=== PATIENT | male | born 1980 | race Two or more races ===

== ENCOUNTER 2019-12-24 10:32 | Emergency (ER) | payer SELFPAY ==
[~2019-12-24] VITALS: Ht 172.7 cm; Wt 86.2 kg
[~2019-12-24 10:32] MED LIST: NKM; TOBRAMYCIN5 ML OPHTHALM
[2019-12-24 10:43] VITALS: BP 110/71
--- NOTE | 2019-12-24 10:55 | Emergency Room Report ---
History of Present Illness General Chief Complaint: Lower Back Pain or Injury Source: Patient Present Illness HPI Disclaimer: Please note that this report is being documented using DRAGON technology. This can lead to erroneous entry secondary to incorrect interpretation by the dictating instrument. HPI: 38-year-old male presents for evaluation of back pain. 2 days ago he was bending over to pick something up and felt a sudden sharp pain and a pop in his lower back. Is been 8 unable to stand up straight since. He went to see an acu puncturist yesterday has been using ibuprofen. Denies pain radiating from the back. Denies urinary retention, fecal incontinence, lower extremity weakness, numbness, tingling. Denies fever or chills. No injury sustained. No fall or impact. No prior history of back surgery. PMH: Reviewed PSH: Reviewed Allergies: Reviewed Social Hx: Reviewed Allergies: Coded Allergies: No Known Allergies (Unverified , 06/27/13) COVID-19 Screening Contact w/high risk pt: No Experienced COVID-19 symptoms?: No COVID-19 Testing performed SALES [employer]ITTER: No Nursing Documentation-PMH Past Medical History: No Stated History Review of Systems All Other Systems: negative except mentioned in HPI Physical Exam Vital Signs Date Time Temp Pulse Resp B/P (MAP) Pulse Ox O2 Delivery O2 Flow Rate FiO2 12/24/19 10:36 97.9 78 16 110/71 (84) 99 Room Air General: Awake and alert, appears uncomfortable HEENT: NC/AT. EOMI. Resp: Normal work of breathing Skin: Intact. No abrasions, laceration or rash over the exposed skin MSK: Normal tone and bulk. Moving all extremities. No obvious deformity. Neuro: Awake and alert. Mentating appropriately. Sensation intact to light touch over the dermatomes lower extremities. Back: Arrives with back brace. Moderate tenderness palpation of the midline in the lumbar spine. Moderate paraspinal tenderness. No palpable deformity. Medical Decision Making Diagnostic Impression: Primary Impression: Back strain ER Course 39-year-old male presents for evaluation of back pain after bending over 2 days ago. Differential includes is not into ligamentous strain, strain, spasm, dislocation, occult fracture, herniated disc, cauda equina syndrome, spinal epidural abscess, spinal lesion. Low clinical concern for infection or spinal epidural abscess or metastatic lesion or cauda equina syndrome. X-ray was obtained but no fracture or other bony abnormalities were identified. Patient will be treated with NSAIDs, Robaxin, lidocaine patches. Instructed to follow- up with some physical therapy and continue stretching exercise at home. Instructed to return with new or worsening symptoms. He was able to ambulate out of the emergency department without assistance. Other X-Ray Diagnostic Results Other X-Ray Diagnostic Results : X-Ray ordered: Lumbar Indication: Pain EP Interpretation: Yes Interpretation: no dislocation, no soft tissue swelling, no fractures, other - Preserved heights Impression: No acute disease Electronically Signed by: Electronically signed by Dr. Micheal Blue Last Vital Signs Date Time Temp Pulse Resp B/P (MAP) Pulse Ox O2 Delivery O2 Flow Rate FiO2 12/24/19 10:43 97.9 78 16 110/71 99 Room Air Disposition: HOME, SELF-CARE Condition: Stable Scripts Lidocaine Patch* (Lidoderm Patch*) 1 Each Adh..patch 1 PATCH TOPIC DAILY, #30 PATCH Patch(es) may remain in place for up to 12 hours in any 24-hour period. Prov: Micheal Blue MD 12/24/19 Methocarbamol* (ROBAXIN-750*) 750 Mg Tablet 750 MG PO QID, #28 TAB 0 Refills Prov: Micheal Blue MD 12/24/19 Ibuprofen* (MOTRIN*) 600 Mg Tablet 600 MG ORAL Q6H PRN for For Pain, #30 TAB 0 Refills Prov: Micheal Blue MD 12/24/19 Micheal Blue MD Dec 24, 2019 10:55
[2019-12-24] MEDS ORDERED: Ketorolac 30mg Inj IM ONE (11:00)
[2019-12-24] MEDS ORDERED: Methocarbamol 750mg tab ORAL ONE (11:00)
[2019-12-24] MEDS ORDERED: IBUPROFEN600 M1 ORAL (11:03)
[2019-12-24] MEDS ORDERED: ROBAXIN-750750 MG PO (11:03)
[2019-12-24] MEDS ORDERED: LIDODERM700 M1 TOPIC (11:03)
[2019-12-24 12:22] VITALS: BP 113/75
--- NOTE | 2019-12-24 14:48 | Diagnostic Imaging Report ---
INDICATION: Back pain TECHNIQUE: [facility] frontal and lateral views of the lumbosacral spine COMPARISON: None FINDINGS: There are 5 lumbar type vertebral bodies. There is grade 1 anterolisthesis of L5 on S1. There is an associated pars fracture. Vertebral body heights are maintained. There are multilevel discogenic degenerative changes characterized by mild disc space narrowing and small endplate osteophyte formation. IMPRESSION: Grade 1 anterolisthesis of L5 on S1, age indeterminate, with associated pars fracture, which may be unilateral or bilateral; laterality cannot be determined on single lateral view.
== END 2019-12-24 12:23 | disposition home or self-care (01) ==
LOC: EMR 11:40
DX: S39.012A Strain of muscle, fascia and tendon of lower back, initial encounter (principal); X50.1XXA Overexertion from prolonged static or awkward postures, initial encounter; Y93.89 Activity, other specified; Y92.9 Unspecified place or not applicable
CPT/HCPCS: 72020; 96372; 99283; J1885